=== PATIENT | female | born 1950 | race Two or more races ===

== ENCOUNTER → 2018-02-16 08:00 | Outpatient (CLI) | payer OTHER | END | disposition home or self-care (01) | LOC: LAB 07:43 | DX: I10 Essential (primary) hypertension (principal); E11.9 Type 2 diabetes mellitus without complications; E03.8 Other specified hypothyroidism; E78.2 Mixed hyperlipidemia; K92.1 Melena; D64.0 Hereditary sideroblastic anemia; M81.0 Age-related osteoporosis without current pathological fracture; Z12.11 Encounter for screening for malignant neoplasm of colon; E55.9 Vitamin D deficiency, unspecified ==

== ENCOUNTER 2018-02-16 12:03 | Outpatient (CLI) | payer OTHER | END 2018-02-16 12:20 | disposition home or self-care (01) | LOC: MAMO-SONO 12:03 | DX: Z12.31 Encounter for screening mammogram for malignant neoplasm of breast (principal); Z87.898 Personal history of other specified conditions; N62 Hypertrophy of breast ==

== ENCOUNTER → 2018-02-28 | Outpatient (CLI) | payer OTHER | END | disposition home or self-care (01) | LOC: NUCLEAR 10:18 | DX: M81.0 Age-related osteoporosis without current pathological fracture (principal) ==

== ENCOUNTER 2018-06-20 08:36 | Outpatient (CLI) | payer OTHER | END 2018-06-20 15:00 | disposition home or self-care (01) | LOC: LAB 08:36 | DX: I10 Essential (primary) hypertension (principal); E11.9 Type 2 diabetes mellitus without complications; E03.8 Other specified hypothyroidism; E78.2 Mixed hyperlipidemia ==

== ENCOUNTER 2018-09-13 07:25 | Outpatient (CLI) | payer OTHER | END 2018-09-13 08:13 | disposition home or self-care (01) | LOC: LAB 07:25 | DX: E03.8 Other specified hypothyroidism (principal); E11.9 Type 2 diabetes mellitus without complications; E78.2 Mixed hyperlipidemia; Z12.11 Encounter for screening for malignant neoplasm of colon; I10 Essential (primary) hypertension ==

== ENCOUNTER 2018-12-20 07:30 | Outpatient (CLI) | payer OTHER | END 2018-12-20 15:00 | disposition home or self-care (01) | LOC: LAB 07:30 | DX: E03.8 Other specified hypothyroidism (principal); I10 Essential (primary) hypertension; E11.9 Type 2 diabetes mellitus without complications; E78.2 Mixed hyperlipidemia ==

== ENCOUNTER 2019-01-31 08:51 | Outpatient (CLI) | payer OTHER ==
[~2019-01-31] VITALS: Ht 157.5 cm; Wt 68.0 kg
== END 2019-01-31 14:49 | disposition home or self-care (01) ==
LOC: OFIC 805 08:51
DX: H90.6 Mixed conductive and sensorineural hearing loss, bilateral (principal); H70.13 Chronic mastoiditis, bilateral; J31.0 Chronic rhinitis; H95 Intraoperative and postprocedural complications and disorders of ear and mastoid process, not elsewhere classified

== ENCOUNTER 2019-02-08 10:36 | Outpatient (CLI) | payer OTHER | END 2019-02-09 10:28 | disposition home or self-care (01) | LOC: TOM 10:36 | DX: H75.02 Mastoiditis in infectious and parasitic diseases classified elsewhere, left ear (principal) ==

== ENCOUNTER 2019-02-16 10:56 | Outpatient (CLI) | payer OTHER ==
[~2019-02-16] VITALS: Ht 152.4 cm; Wt 68.0 kg
== END 2019-02-16 12:36 | disposition home or self-care (01) ==
LOC: OFIC 805 10:56
DX: H90.6 Mixed conductive and sensorineural hearing loss, bilateral (principal); H70.13 Chronic mastoiditis, bilateral; J31.0 Chronic rhinitis

== ENCOUNTER 2019-02-16 12:53 | Outpatient (CLI) | payer OTHER | END 2019-02-16 12:59 | disposition home or self-care (01) | LOC: LAB 12:53 | DX: R42 Dizziness and giddiness (principal) ==

== ENCOUNTER 2019-03-01 07:39 | Outpatient (CLI) | payer OTHER | END 2019-03-01 08:04 | disposition home or self-care (01) | LOC: MRI 07:39 | DX: R42 Dizziness and giddiness (principal); H70.13 Chronic mastoiditis, bilateral; H72.02 Central perforation of tympanic membrane, left ear; H90.A32 Mixed conductive and sensorineural hearing loss, unilateral, left ear with restricted hearing on the contralateral side | CPT/HCPCS: 70553; A9575 ==

== ENCOUNTER 2019-03-09 11:31 | Outpatient (CLI) | payer OTHER ==
[~2019-03-09] VITALS: Ht 152.4 cm; Wt 68.0 kg
== END 2019-03-09 14:45 | disposition home or self-care (01) ==
LOC: OFIC 805 11:31
DX: H90.6 Mixed conductive and sensorineural hearing loss, bilateral (principal); H70.13 Chronic mastoiditis, bilateral; J31.0 Chronic rhinitis

== ENCOUNTER 2019-03-22 10:01 | Outpatient (CLI) | payer OTHER | END 2019-03-22 10:03 | disposition home or self-care (01) | LOC: LAB 10:01 | DX: E11.9 Type 2 diabetes mellitus without complications (principal); E03.8 Other specified hypothyroidism; E78.2 Mixed hyperlipidemia; I10 Essential (primary) hypertension ==

== ENCOUNTER 2019-03-22 10:51 | Outpatient (CLI) | payer OTHER | END 2019-03-23 06:23 | disposition home or self-care (01) | LOC: MAMO-SONO 10:51 | DX: N64.4 Mastodynia (principal); Z12.31 Encounter for screening mammogram for malignant neoplasm of breast ==

== ENCOUNTER 2019-06-02 01:21 | Emergency (ER) | payer OTHER ==
[~2019-06-02] VITALS: Ht 157.5 cm; Wt 68.0 kg
[2019-06-02] MEDS ORDERED: SYNTHROID125 MCG (01:28)
== END 2019-06-02 07:56 | disposition home or self-care (01) ==
LOC: ER 01:21
DX: N39.0 Urinary tract infection, site not specified (principal); R10.32 Left lower quadrant pain

== ENCOUNTER 2019-07-11 09:06 | Outpatient (CLI) | payer OTHER ==
[~2019-07-11 09:06] MED LIST: SYNTHROID125 MCG
== END 2019-07-11 15:00 | disposition home or self-care (01) ==
LOC: LAB 09:06
DX: E11.9 Type 2 diabetes mellitus without complications (principal); E03.8 Other specified hypothyroidism; E78.2 Mixed hyperlipidemia; I10 Essential (primary) hypertension

== ENCOUNTER → 2019-07-17 | Outpatient (CLI) | payer OTHER | END | disposition home or self-care (01) | LOC: SONOGRAMA 09:15 | DX: M12.872 Other specific arthropathies, not elsewhere classified, left ankle and foot (principal) ==

== ENCOUNTER → 2019-10-26 06:54 | Outpatient (CLI) | payer OTHER | END | disposition home or self-care (01) | LOC: LAB 06:54 | PROVIDERS: ATTEND Internal Medicine Cardiovascular Disease | DX: E11.9 Type 2 diabetes mellitus without complications (principal); E03.8 Other specified hypothyroidism; I10 Essential (primary) hypertension; E78.2 Mixed hyperlipidemia ==

== ENCOUNTER 2020-02-22 07:25 | Outpatient (CLI) | payer OTHER | END 2020-02-22 07:30 | disposition home or self-care (01) | LOC: LAB 07:25 | PROVIDERS: ATTEND Internal Medicine Cardiovascular Disease | DX: E03.8 Other specified hypothyroidism (principal); I10 Essential (primary) hypertension; E11.9 Type 2 diabetes mellitus without complications; E78.2 Mixed hyperlipidemia ==

== ENCOUNTER → 2020-06-19 08:19 | Outpatient (CLI) | payer OTHER | END | disposition home or self-care (01) | LOC: LAB 08:19 | PROVIDERS: ATTEND Internal Medicine Cardiovascular Disease | DX: E03.8 Other specified hypothyroidism (principal); I10 Essential (primary) hypertension; E11.9 Type 2 diabetes mellitus without complications; E78.2 Mixed hyperlipidemia; Z12.11 Encounter for screening for malignant neoplasm of colon ==

== ENCOUNTER → 2020-06-19 | Outpatient (CLI) | payer OTHER | END | disposition home or self-care (01) | LOC: MAMO-SONO 12:08 | PROVIDERS: ATTEND Obstetrics & Gynecology | DX: D24.2 Benign neoplasm of left breast (principal); Z12.31 Encounter for screening mammogram for malignant neoplasm of breast; N64.4 Mastodynia ==

== ENCOUNTER → 2020-08-19 07:40 | Outpatient (CLI) | payer OTHER | END | disposition home or self-care (01) | LOC: LAB 07:40 | PROVIDERS: ATTEND Ophthalmology | DX: I10 Essential (primary) hypertension (principal); R07.89 Other chest pain; D68.8 Other specified coagulation defects ==

== ENCOUNTER → 2020-11-07 08:24 | Outpatient (CLI) | payer OTHER | END | disposition home or self-care (01) | LOC: LAB 08:24 | PROVIDERS: ATTEND Internal Medicine Cardiovascular Disease | DX: I10 Essential (primary) hypertension (principal); E11.9 Type 2 diabetes mellitus without complications ==

== ENCOUNTER 2020-11-11 08:45 | Outpatient (CLI) | payer OTHER | END 2020-11-11 13:29 | disposition home or self-care (01) | LOC: LAB 08:45 | PROVIDERS: ATTEND Internal Medicine Cardiovascular Disease | DX: E78.2 Mixed hyperlipidemia (principal) ==

== ENCOUNTER → 2021-03-16 08:31 | Outpatient (CLI) | payer OTHER | END | disposition home or self-care (01) | LOC: LAB 08:31 | PROVIDERS: ATTEND Internal Medicine Cardiovascular Disease | DX: I10 Essential (primary) hypertension (principal); E11.9 Type 2 diabetes mellitus without complications; E03.8 Other specified hypothyroidism; E78.2 Mixed hyperlipidemia ==

== ENCOUNTER 2021-07-13 10:38 | Outpatient (CLI) | payer OTHER | END 2021-07-13 10:48 | disposition home or self-care (01) | LOC: MAMO-SONO 10:38 | PROVIDERS: ATTEND Internal Medicine Cardiovascular Disease | DX: N63.11 Unspecified lump in the right breast, upper outer quadrant (principal) ==

== ENCOUNTER 2021-08-04 08:22 | Outpatient (CLI) | payer OTHER | END 2021-08-04 08:56 | disposition home or self-care (01) | LOC: LAB 08:22 | PROVIDERS: ATTEND Internal Medicine Cardiovascular Disease | DX: E03.9 Hypothyroidism, unspecified (principal); I10 Essential (primary) hypertension; E11.9 Type 2 diabetes mellitus without complications; E78.2 Mixed hyperlipidemia; Z12.11 Encounter for screening for malignant neoplasm of colon; E55.9 Vitamin D deficiency, unspecified ==

== ENCOUNTER 2021-12-16 07:48 | Outpatient (CLI) | payer OTHER | END 2021-12-16 07:56 | disposition home or self-care (01) | LOC: LAB 07:48 | PROVIDERS: ATTEND Internal Medicine Cardiovascular Disease | DX: I10 Essential (primary) hypertension (principal); E11.9 Type 2 diabetes mellitus without complications; E03.9 Hypothyroidism, unspecified; E78.2 Mixed hyperlipidemia ==

== ENCOUNTER 2022-04-23 08:20 | Outpatient (CLI) | payer OTHER | END 2022-04-23 08:28 | disposition home or self-care (01) | LOC: LAB 08:20 | PROVIDERS: ATTEND Internal Medicine Cardiovascular Disease | DX: I10 Essential (primary) hypertension (principal); E11.9 Type 2 diabetes mellitus without complications; E03.9 Hypothyroidism, unspecified; E78.2 Mixed hyperlipidemia ==

== ENCOUNTER → 2022-09-27 07:28 | Outpatient (CLI) | payer OTHER | END | disposition home or self-care (01) | LOC: LAB 07:28 | PROVIDERS: ATTEND Internal Medicine Cardiovascular Disease | DX: E03.9 Hypothyroidism, unspecified (principal); I10 Essential (primary) hypertension; E11.9 Type 2 diabetes mellitus without complications; E78.2 Mixed hyperlipidemia; E55.9 Vitamin D deficiency, unspecified; Z12.11 Encounter for screening for malignant neoplasm of colon ==

== ENCOUNTER → 2023-03-02 07:47 | Outpatient (CLI) | payer OTHER ==
[2023-03-02 08:57] LABS: URINE APPEARANCE Clear; URINE BILIRRUBIN Negative (NEGATIVE); URINE BLOOD Negative; URINE COLOR Yellow; URINE GLUCOSE Negative (NEGATIVE); URINE LEUKOCYTE Negative; URINE NITRATE Negative; URINE PROTEIN Negative (NEGATIVE); URINE UROBILINOGEN 0.2 E.U./dl
[2023-03-02 08:58] LABS: URINE BACTERIA 8.8 uL (0.0-1933); URINE RBC 4.8 uL (0.0-20.8)
[2023-03-02 09:03] LABS: HEMATOCRIT 38.1 % (36.0-45.00); HEMOGLOBIN 12.5 g/dL (12.0-15.00); MEAN CELL VOLUME 89.8 fL (80.00-100.00); MEAN CORPUSCULAR HEMOGLOBIN 29.5 pg (27.00-32.0); MEAN CORPUSCULAR HGB CONC 32.8 g/dl (32.0-36.0); PLATELET COUNT 218 K/uL (150-450); RED BLOOD COUNT 4.24 M/uL (4.00-6.00); RED CELL DISTRIBUTION WIDTH 13.5 % (11.5-14.5)
[2023-03-02 09:33] LABS: URINE EPITHELIAL CELLS 0.9 uL (0.0-38.8)
[2023-03-02 09:39] LABS: CALCIUM 9.1 mg/dL (8.5-10.1); CHOL HDL RATIO 4.6 (0-5.0); CREATININE SERUM 0.8 mg/dL (0.55-1.02); GFR 70.91; POTASSIUM 4.26 mEq/L (3.5-5.1); T4 TOTAL 9.99 UG/DL (4.8-13.9); TSH 1.22 uIU/mL (0.358-3.74)
== END | disposition home or self-care (01) ==
LOC: LAB 07:47
PROVIDERS: ATTEND Internal Medicine Cardiovascular Disease
DX: E11.9 Type 2 diabetes mellitus without complications (principal); E03.9 Hypothyroidism, unspecified; E78.2 Mixed hyperlipidemia

== ENCOUNTER → 2023-08-02 09:55 | Outpatient (CLI) | payer OTHER ==
[2023-08-02 11:34] LABS: HEMATOCRIT 39.1 % (36.0-45.00); HEMOGLOBIN 13.2 g/dL (12.0-15.00); MEAN CELL VOLUME 89.3 fL (80.00-100.00); MEAN CORPUSCULAR HEMOGLOBIN 30.2 pg (27.00-32.0); MEAN CORPUSCULAR HGB CONC 33.8 g/dl (32.0-36.0); PLATELET COUNT 202 K/uL (150-450); RED BLOOD COUNT 4.38 M/uL (4.00-6.00); RED CELL DISTRIBUTION WIDTH 13.5 % (11.5-14.5)
[2023-08-02 11:35] LABS: PH,URINE 5.5 (5.0-8.0); URINE APPEARANCE Clear; URINE BILIRRUBIN Negative (NEGATIVE); URINE BLOOD Negative; URINE COLOR Yellow; URINE GLUCOSE Negative (NEGATIVE); URINE LEUKOCYTE Negative; URINE NITRATE Negative; URINE PROTEIN Negative (NEGATIVE); URINE UROBILINOGEN 0.2 E.U./dl
[2023-08-02 11:36] LABS: URINE BACTERIA 49.1 uL (0.0-1933); URINE EPITHELIAL CELLS 3.5 uL (0.0-38.8); URINE RBC 8.3 uL (0.0-20.8)
[2023-08-02 11:39] LABS: URINE WBC 1.3 uL (0.0-23.2)
[2023-08-02 12:21] LABS: ALBUMIN 3.7 gm/dL (3.4-5.0); BILIRUBIN TOTAL 0.56 mg/dL (0.3-1.2); CALCIUM 9.5 mg/dL (8.5-10.1); CHOL HDL RATIO 4.9 (0-5.0); CREATININE SERUM 0.76 mg/dL (0.55-1.02); GFR 75.02; GLOBULINA 3.5 G/DL (2.4-3.5); POTASSIUM 4.53 mEq/L (3.5-5.1); T4 TOTAL 10.62 UG/DL (4.8-13.9); TOTAL PROTEIN 7.2 gm/dL (6.4-8.2); TSH 0.814 uIU/mL (0.358-3.74)
[2023-08-02 12:46] LABS: T3 TOTAL 0.956 ng/ml (0.846-2.02); VITAMIN D3 25 HYDROXY 45.8 ng/ml (30-120)
[2023-08-02 13:01] LABS: ob NEGATIVE (NEGATIVE)
== END | disposition home or self-care (01) ==
LOC: LAB 09:55
PROVIDERS: ATTEND Internal Medicine Cardiovascular Disease
DX: I10 Essential (primary) hypertension (principal); E11.9 Type 2 diabetes mellitus without complications; E03.9 Hypothyroidism, unspecified; E78.2 Mixed hyperlipidemia; Z12.11 Encounter for screening for malignant neoplasm of colon; E55.9 Vitamin D deficiency, unspecified

== ENCOUNTER 2023-08-04 10:06 | Outpatient (CLI) | payer OTHER | END 2023-08-04 10:10 | disposition home or self-care (01) | LOC: MAMO-SONO 10:06 | PROVIDERS: ATTEND Internal Medicine Cardiovascular Disease | DX: N60.11 Diffuse cystic mastopathy of right breast (principal); N60.12 Diffuse cystic mastopathy of left breast; Z12.31 Encounter for screening mammogram for malignant neoplasm of breast ==

== ENCOUNTER 2023-11-29 12:21 | Outpatient (CLI) | payer OTHER | END 2023-11-29 12:24 | disposition home or self-care (01) | LOC: RAD 12:21 | PROVIDERS: ATTEND Internal Medicine Cardiovascular Disease | DX: M46.47 Discitis, unspecified, lumbosacral region (principal); M12.9 Arthropathy, unspecified ==

== ENCOUNTER 2024-01-31 08:55 | Outpatient (CLI) | payer OTHER ==
[2024-01-31 09:41] LABS: HEMATOCRIT 36.7 % (36.0-45.00); HEMOGLOBIN 12.3 g/dL (12.0-15.00); MEAN CELL VOLUME 89.1 fL (80.00-100.00); MEAN CORPUSCULAR HEMOGLOBIN 29.8 pg (27.00-32.0); MEAN CORPUSCULAR HGB CONC 33.4 g/dl (32.0-36.0); PLATELET COUNT 204 K/uL (150-450); RED BLOOD COUNT 4.13 M/uL (4.00-6.00); RED CELL DISTRIBUTION WIDTH 12.9 % (11.5-14.5)
[2024-01-31 10:08] LABS: PH,URINE 6.5 (5.0-8.0); URINE APPEARANCE Clear; URINE BILIRRUBIN Negative (NEGATIVE); URINE BLOOD Negative; URINE COLOR Yellow; URINE GLUCOSE Negative (NEGATIVE); URINE KETONE Negative (NEGATIVE); URINE LEUKOCYTE Negative; URINE NITRATE Negative; URINE PROTEIN Negative (NEGATIVE)
[2024-01-31 10:09] LABS: URINE BACTERIA 62.9 uL (0.0-1933); URINE EPITHELIAL CELLS 6.7 uL (0.0-38.8); URINE RBC 10.5 uL (0.0-20.8); URINE WBC 1.8 uL (0.0-23.2)
[2024-01-31 10:10] LABS: URINE CAST 0.15 uL (0.0-1.40)
[2024-01-31 10:49] LABS: CREATININE SERUM 0.67 mg/dL (0.55-1.02); GFR 86.76; POTASSIUM 3.91 mEq/L (3.5-5.1); T4 TOTAL 13.31 UG/DL (4.8-13.9)
[2024-01-31 11:03] LABS: TSH 0.029 uIU/mL (0.358-3.74)
== END 2024-01-31 08:56 | disposition home or self-care (01) ==
LOC: LAB 08:55
PROVIDERS: ATTEND Internal Medicine Cardiovascular Disease
DX: E11.9 Type 2 diabetes mellitus without complications (principal); I10 Essential (primary) hypertension; E03.9 Hypothyroidism, unspecified; E78.2 Mixed hyperlipidemia

== ENCOUNTER → 2024-07-31 07:59 | Outpatient (CLI) | payer OTHER ==
[2024-07-31 08:47] LABS: HEMATOCRIT 37.9 % (36.0-45.00); HEMOGLOBIN 12.5 g/dL (12.0-15.00); MEAN CELL VOLUME 88.8 fL (80.00-100.00); MEAN CORPUSCULAR HEMOGLOBIN 29.3 pg (27.00-32.0); PLATELET COUNT 210 K/uL (150-450); RED BLOOD COUNT 4.27 M/uL (4.00-6.00); RED CELL DISTRIBUTION WIDTH 13.5 % (11.5-14.5)
[2024-07-31 08:54] LABS: PH,URINE 6.5 (5.0-8.0); URINE APPEARANCE Clear; URINE BILIRRUBIN Negative (NEGATIVE); URINE BLOOD Negative; URINE COLOR Yellow; URINE GLUCOSE Negative (NEGATIVE); URINE KETONE Negative (NEGATIVE); URINE LEUKOCYTE Negative; URINE NITRATE Negative; URINE PROTEIN Negative (NEGATIVE)
[2024-07-31 08:56] LABS: URINE RBC 3.9 uL (0.0-20.8)
[2024-07-31 09:01] LABS: URINE EPITHELIAL CELLS 0.7 uL (0.0-38.8); URINE WBC 0.9 uL (0.0-23.2)
[2024-07-31 10:24] LABS: CALCIUM 9.3 mg/dL (8.5-10.1); CHOL HDL RATIO 3.9 (0-5.0); CREATININE SERUM 0.63 mg/dL (0.55-1.02); GFR 92.89; POTASSIUM 4.57 mEq/L (3.5-5.1); T4 TOTAL 11.93 UG/DL (4.8-13.9)
[2024-07-31 10:25] LABS: TSH 0.028 uIU/mL (0.358-3.74)
== END | disposition home or self-care (01) ==
LOC: LAB 07:59
PROVIDERS: ATTEND Internal Medicine Cardiovascular Disease
DX: E11.9 Type 2 diabetes mellitus without complications (principal); I10 Essential (primary) hypertension; E03.9 Hypothyroidism, unspecified; E78.2 Mixed hyperlipidemia

== ENCOUNTER 2024-08-07 09:20 | Outpatient (CLI) | payer OTHER | END 2024-08-07 09:30 | disposition home or self-care (01) | LOC: MAMO-SONO 09:20 | PROVIDERS: ATTEND Internal Medicine Cardiovascular Disease | DX: N60.11 Diffuse cystic mastopathy of right breast (principal); N60.12 Diffuse cystic mastopathy of left breast; Z12.31 Encounter for screening mammogram for malignant neoplasm of breast ==

== ENCOUNTER → 2024-10-31 07:41 | Outpatient (CLI) | payer OTHER ==
[2024-10-31 08:25] LABS: BASO % 0.3 % (0.1-1.2); EOS # 0.24 (0.04-0.54); EOS % 4.1 % (0.7-7.0); HEMATOCRIT 39.3 % (34.1-44.9); LYMPH # 1.98 (1.18-3.74); MEAN CORPUSCULAR HEMOGLOBIN 28.6 pg (25.6-32.2); MONO # 0.44 (0.24-0.82); MONO % 7.6 % (4.7-12.5); NEUT # 3.13 (1.56-6.13); NEUT % 53.8 % (34.0-71.1); PLATELET COUNT 217 K/uL (163-369); RED BLOOD COUNT 4.55 M/uL (3.93-5.22); RED CELL DISTRIBUTION WIDTH 12.9 % (11.6-14.4)
[2024-10-31 08:29] LABS: URINE APPEARANCE Clear; URINE BILIRRUBIN Negative (NEGATIVE); URINE BLOOD Negative; URINE COLOR Yellow; URINE GLUCOSE Negative (NEGATIVE); URINE KETONE Negative (NEGATIVE); URINE LEUKOCYTE Trace; URINE NITRATE Negative; URINE PROTEIN Negative (NEGATIVE); URINE UROBILINOGEN 0.2 E.U./dl
[2024-10-31 08:34] LABS: URINE BACTERIA 819.9 uL (0.0-1933); URINE EPITHELIAL CELLS 49.2 uL (0.0-38.8); URINE RBC 29.4 uL (0.0-20.8); URINE WBC 13.2 uL (0.0-23.2)
[2024-10-31 09:28] LABS: CALCIUM 9.4 mg/dL (8.5-10.1); CHOL HDL RATIO 3.8 (0-5.0); CREATININE SERUM 0.61 mg/dL (0.55-1.02); GFR 96.41; POTASSIUM 4.22 mEq/L (3.5-5.1)
[2024-10-31 09:49] LABS: T4 TOTAL 14.14 UG/DL (4.8-13.9); TSH 0.017 uIU/mL (0.358-3.74)
[2024-10-31 10:25] LABS: T3 TOTAL 1.27 ng/ml (0.846-2.02); VITAMIN D3 25 HYDROXY 42.5 ng/ml (30-120)
== END | disposition home or self-care (01) ==
LOC: LAB 07:41
PROVIDERS: ATTEND Internal Medicine Cardiovascular Disease
DX: E11.9 Type 2 diabetes mellitus without complications (principal); I10 Essential (primary) hypertension; E03.9 Hypothyroidism, unspecified; E78.2 Mixed hyperlipidemia; D64.0 Hereditary sideroblastic anemia; Z12.11 Encounter for screening for malignant neoplasm of colon; M81.0 Age-related osteoporosis without current pathological fracture; E55.9 Vitamin D deficiency, unspecified

== ENCOUNTER → 2025-01-31 09:32 | Outpatient (CLI) | payer OTHER ==
[2025-01-31 10:15] LABS: BASO % 0.5 % (0.1-1.2); EOS # 0.23 (0.04-0.54); EOS % 3.6 % (0.7-7.0); LYMPH # 1.75 (1.18-3.74); LYMPH % 27.6 % (19.3-53.1); MEAN PLATELET VOLUME 9.70 fl (9.4-12.4); MONO # 0.46 (0.24-0.82); MONO % 7.3 % (4.7-12.5); NEUT # 3.86 (1.56-6.13); NEUT % 60.8 % (34.0-71.1); RED CELL DISTRIBUTION WIDTH 13.2 % (11.6-14.4)
[2025-01-31 10:19] LABS: URINE APPEARANCE Clear; URINE BILIRRUBIN Negative (NEGATIVE); URINE BLOOD Negative; URINE COLOR Yellow; URINE GLUCOSE Negative (NEGATIVE); URINE KETONE Negative (NEGATIVE); URINE LEUKOCYTE Negative; URINE NITRATE Negative; URINE PROTEIN Negative (NEGATIVE); URINE UROBILINOGEN 0.2 E.U./dl
[2025-01-31 10:23] LABS: URINE BACTERIA 105.5 uL (0.0-1933); URINE EPITHELIAL CELLS 5.8 uL (0.0-38.8); URINE RBC 16.1 uL (0.0-20.8); URINE WBC 4.6 uL (0.0-23.2)
[2025-01-31 10:27] LABS: URINE CAST 0.87 uL (0.0-1.40)
[2025-01-31 12:13] LABS: BUN CREA RATIO 26.0 (7.0-25.0); CHOL HDL RATIO 3.6 (0-5.0); CREATININE SERUM 0.62 mg/dL (0.55-1.02); GFR 94.62; GLUCOSE FASTING 94.0 mg/dL (65-100); HDL 35.0 mg/dl (40-60); LDL 72.0 mg/dl (0-130); OSMOLALITY SERUM 286.0 MOSM/KG (275-295); T4 TOTAL 11.4 UG/DL (4.8-13.9); VLDL 17.0 (0-39)
[2025-01-31 12:15] LABS: TSH 0.064 uIU/mL (0.358-3.74)
== END | disposition home or self-care (01) ==
LOC: LAB 09:32
PROVIDERS: ATTEND Internal Medicine Cardiovascular Disease
DX: I10 Essential (primary) hypertension (principal); E03.9 Hypothyroidism, unspecified; E78.2 Mixed hyperlipidemia; N39.0 Urinary tract infection, site not specified